=== PATIENT | male | born 1995 | race Caucasian/White ===

== ENCOUNTER 2019-03-16 19:27 | Emergency (ER) | payer OTHER ==
[~2019-03-16] VITALS: Ht 190.5 cm; Wt 108.9 kg
[~2019-03-16 19:27] MED LIST: CYCL10 PO; Naprosyn500 MG PO; Ultram50 MG PO
[2019-03-16] MEDS ORDERED: INCARCERATION (19:46)
== END 2019-03-16 19:50 | disposition home or self-care (01) ==
LOC: ER 19:27
DX: S01.01XA Laceration without foreign body of scalp, initial encounter (principal); Z23 Encounter for immunization; W22.8XXA Striking against or struck by other objects, initial encounter
CPT/HCPCS: 12001; 90471; 90714; 99283-25

== ENCOUNTER 2019-04-03 17:21 | Emergency (ER) | payer OTHER ==
[~2019-04-03] VITALS: Ht 190.5 cm; Wt 108.9 kg
[~2019-04-03 17:21] MED LIST changes: +INCARCERATION
== END 2019-04-03 17:36 | disposition home or self-care (01) ==
LOC: ER 17:21
DX: S01.01XD Laceration without foreign body of scalp, subsequent encounter (principal); F17.210 Nicotine dependence, cigarettes, uncomplicated

== ENCOUNTER 2019-08-14 00:22 | Emergency (ER) | payer OTHER ==
[~2019-08-14] VITALS: Ht 190.5 cm; Wt 117.9 kg
== END 2019-08-14 01:32 | disposition home or self-care (01) ==
LOC: ER 00:22
DX: S09.90XA Unspecified injury of head, initial encounter (principal); S01.81XA Laceration without foreign body of other part of head, initial encounter; F17.210 Nicotine dependence, cigarettes, uncomplicated; Y04.2XXA Assault by strike against or bumped into by another person, initial encounter
CPT/HCPCS: 12015; 99283-25